=== PATIENT | female | born 1995 | race Hispanic/Latino ===

== ENCOUNTER 2024-06-15 16:40 | Emergency (ER) | payer BC, MEDICAID ==
[~2024-06-15] VITALS: Ht 165.1 cm; Wt 81.2 kg
--- NOTE | 2024-06-15 17:02 | ERN ---
ED Note History of Present Illness Stated Complaint: VAGINAL RASH Chief Complaint: Skin Rash/Abscess Time Seen by MD: 16:45 Dictation: PATIENT IS HERE WITH COMPLAINTS OF ONE WEEK'S WORTH OF VAGINAL DISCHARGE UNCLEAR OF THE COLOR, ITCHING AND SOME BUMPS AROUND HER LABIA AND VAGINA. SHE DENIES ANY FEVER CHILLS NAUSEA VOMITING OR DYSURIA DOES STATE THAT SHE HAS A HISTORY OF SEXUALLY TRANSMITTED DISEASE FROM THE SAME [facility] SHE IS DATING NOW, HE GAVE ME SYPHILIS LAST YEAR AND I HAD TO GET A SHOT TO TAKE CARE OF IT. SHE SAID I JUST GOT OUT OF PENITENTIARY FEW DAYS AGO AND I WAS IN PENITENTIARY FOR FOUR MONTHS. STATES LAST SEXUAL CONTACT WAS SEVERAL MONTHS AGO PRIOR TO PENITENTIARY Allergies: Coded Allergies: No Known Allergies (Unverified Allergy, Unknown, 06/15/24) Home Meds Active Scripts Fluconazole (Diflucan) 200 Mg Tablet, 1 TAB PO DAILY for 1 Day, #1 TAB 0 Refills ONE TABLET P.O. X1 DOSE Prov:ABAD WAGGONER BRAILLE TRANSCRIBER 06/15/24 Past Medical History Past Medical History: No Pertinent History Surgical History: None PSYCH History: no pertinent psych hx History: Not Applicable LMP: May 12, 2024 RN Note Reviewed/Agreed w/PFSH: Yes Review of System Dictation CONSTITUTIONAL: NEGATIVE EXCEPT FOR HPI HEAD/FACE: NEGATIVE EXCEPT FOR HPI EENT: NEGATIVE EXCEPT FOR HPI RESPIRATORY: NEGATIVE EXCEPT FOR HPI GASTROINTESTINAL/ABDOMINAL: NEGATIVE EXCEPT FOR HPI GENITOURINARY: NEGATIVE EXCEPT FOR HPI MUSCULOSKELETAL: NEGATIVE EXCEPT FOR HPI INTEGUMENTARY: NEGATIVE EXCEPT FOR HPI NEUROLOGICAL/PSYCH: NEGATIVE EXCEPT FOR HPI HEMATOLOGIC/LYMPHATIC: NEGATIVE EXCEPT FOR HPI ALL SYSTEMS NEGATIVE, EXCEPT NOTED ABOVE. 13 POINT REVIEW OF SYSTEMS ASSESSED AND ALL NEGATIVE EXCEPT FOR ABOVE. Initial Vital Sign VS Vital Signs Date Time Temp Pulse Resp B/P (MAP) Pulse Ox O2 Delivery O2 Flow Rate FiO2 06/15/24 16:41 99.0 79 16 136/83 100 Room Air 0 06/15/24 18:03 21 Physical Exam Dictation VITAL SIGNS REVIEWED MARY METCALF IN ROOM WITH THE EXAM GENERAL APPEARANCE: ALERT, ORIENTED X 3, NO ACUTE DISTRESS, WELL DEVELOPED, NOURISHED. HEAD AND FACE: NON-TRAUMATIC. EYES: PERRL, PINK CONJUNCTIVAS, EYELID NO TRAUMA, ANTERIOR CHAMBER WITH ARCUS SENILIS. EARS: PINNAS INTACT AND NO SIGNS OF TRAUMA OR ERYTHEMA EAR CANALS CLEAR AND NO DISCHARGE TM NO ERYTHEMA NOSE: NO DISCHARGE, NO BLEEDING. OROPHARYNX: MOUTH NORMAL, TONGUE PINK, PHARYNX CLEAR,NO ERYTHEMA, TONSILS NO EXUDATES, NO ABSCESSES NOTED, MUCOUS MEMBRANE MOIST NECK: SUPPLE, NON-TENDER, NO THYROMEGALY, NO MASSES, NO JVD, NO BRUITS BREAST:DEFERRED CHEST:NO TENDERNESS, NO CREPITUS, NO PARADOXICAL MOVEMENT, NO RETRACTIONS LUNGS:CLEAR, WELL-VENTILATED, SYMMETRIC, NO RALES, NO WHEEZING, NO RHONCHI, NO STRIDOR, GOOD BREATH SOUNDS BILATERALLY HEART: REGULAR RATE, REGULAR RHYTHM, NO MURMUR, NO GALLOPS VASCULAR: NO PERIPHERAL EDEMA, ABDOMEN: SOFT, POSITIVE BOWEL SOUNDS, NONDISTENDED, NO GUARDING, NONTENDER, NO REBOUND, NO MASSES NO HEPATOMEGALY, NO SPLENOMEGALY, NO FONG'S SIGN, NO HERNIAS. RECTAL: DEFERRED GENITAL: MULTIPLE FOLLICULAR BAR BE SECONDARY TO SHAVING. NO SPECULUM EXAM PERFORMED. WHITE CHEESY DISCHARGE NOTED NEUROLOGICAL: NORMAL SPEECH, MOTOR FUNCTION INTACT, SENSORY FUNCTION INTACT MUSCULOSKELETAL: NECK NONTENDER, FULL RANGE OF MOTION, BACK NONTENDER, FULL RANGE OF MOTION, EXTREMITIES: NONTENDER, FULL RANGE OF MOTION SKIN: COLOR PINK, DRY, NO TURGOR, NO RASH, NO LACERATIONS, NO ABRASIONS, NO CONTUSIONS. LYMPHATIC: DEFERRED Results (Laboratory/Radiology) Laboratory/Radiology Laboratory Tests Test 06/15/24 16:55 Urine Color LIGHT-YELLOW (YELLOW) Urine Appearance CLEAR (CLEAR) Urine pH 7.5 (5.0-8.0) Urine Specific [place] 1.016 (1.001-1.031) Urine Protein NEGATIVE mg/dL (NEGATIVE) Urine Glucose (UA) NEGATIVE mg/dL (NEGATIVE) Urine Ketones NEGATIVE mg/dL (NEGATIVE) Urine Occult Blood NEGATIVE (NEGATIVE) Urine Nitrate NEGATIVE (NEGATIVE) Urine Bilirubin NEGATIVE mg/dL (NEGATIVE) Urine Urobilinogen 0.2 mg/dL (0.2-1.0) Urine Leukocyte Esterase NEGATIVE Brenna/uL Urine RBC None /HPF (0-1) Urine WBC 0-1 /HPF (0-1) Urine Squamous Epithelial Cells RARE /HPF (0-2) Urine Bacteria None /HPF (None Seen) Urine HCG, Qualitative NEGATIVE (NEGATIVE) Labs Reviewed?: Yes ED Course ED Course Orders Procedure Category Date Status Time Urinalysis Profile LAB 06/15/24 Complete 16:58 ,Urine Test LAB 06/15/24 Complete 16:58 Chlamydia & Gc Pcr [place] 06/15/24 In Process 16:58 Vital Signs Date Time Temp Pulse Resp B/P (MAP) Pulse Ox O2 Delivery O2 Flow Rate FiO2 06/15/24 18:03 99.0 78 16 131/76 100 Room Air* 0 21 06/15/24 16:41 99.0 79 16 136/83 100 Room Air 0 1755 URINE NEGATIVE, GC AND CHLAMYDIA NOT RETURNED. AGAIN, PATIENT STATES SHE HAS HAD NO SEX IN MORE THAN POOR AND A HALF TO FIVE MONTHS. NO PELVIC PAIN DISCHARGE HOME WITH DIFLUCAN AND TOLD TO SEE YOUR PRIMARY CARE DOCTOR Medical Decision Making MDM MEDICAL DISCHARGE MAKING BASED ON URINALYSIS, HCG, GC CHLAMYDIA AND PHYSICAL EXAM. NO TREATMENT REQUIRED FOR SHAVING CASSANDRA DAY PATIENT WILL BE TREATED FOR VAGINAL CANDIDIASIS PULLED TO SEE YOUR PRIMARY CARE DOCTOR NEXT WEEK DX & DISP Disposition: Discharge Departure Impression: Primary Impression: Vaginal candidiasis Condition: Stable Scripts Fluconazole (Diflucan) 200 Mg Tablet 1 TAB PO DAILY for 1 Day, #1 TAB 0 Refills ONE TABLET P.O. X1 DOSE Prov: ABAD WAGGONER BRAILLE TRANSCRIBER 06/15/24 Additional Instructions: FOLLOW-UP WITH PRIMARY CARE PROVIDER IN 1 TO 2 DAYS. TAKE MEDICATIONS DIRECTED HERE IN THE EMERGENCY ROOM. OKAY TO CONTINUE HOME MEDICATIONS UNLESS OTHERWISE DISCUSSED DURING YOUR VISIT IN THE EMERGENCY ROOM TODAY. RETURN TO YOUR NEAREST EMERGENCY ROOM IF SYMPTOMS WORSEN OR IF THERE IS NO IMPROVEMENT. CALL 911 IF YOU NEED IMMEDIATE ASSISTANCE. TAKE TYLENOL OR MOTRIN [id number] NEEDED AND IF NO CONTRAINDICATIONS ARE PRESENT. INCREASE ORAL HYDRATION. A WOUND CULTURE OR URINE CULTURE WAS ORDERED HERE IN THE EMERGENCY ROOM DEPARTMENT PLEASE FOLLOW-UP WITH PRIMARY CARE PROVIDER AND ADVISE THEM TO GET REPEAT PORTS FROM OUR FACILITY. IF YOU HAD ANY LEE ANN WRAP/SPLINTS THAT WERE APPLIED HERE, PLEASE DO NOT REMOVE THEM UNTIL YOU SEE YOUR PRIMARY CARE OR SPECIALTY. TAKE DIFLUCAN DIRECTED. NO SEX UNTIL CLEARED BY YOUR PRIMARY CARE DOCTOR NEXT WEEK. Referrals: SELF,REFERRAL (PCP) Time of Disposition: 17:58 I have reviewed the case, and I agree with, Diagnosis and Plan ATTESTATION BY PHYSICIAN I PERFORMED THE SUBSTANTIVE PORTION OF THE VISIT. I HAVE REVIEWED AND PERSONALLY MADE AND APPROVED THE MANAGEMENT PLAN THAT IS DOCUMENTED IN THE NOTE BY MYSELF FOR THE A PP. I ACKNOWLEDGED FOR RESPONSIBILITY FOR THE PATIENT'S MANAGEMENT PLAN. ABAD WAGGONER NP Jun 15, 2024 17:02 LEWIS MOORE MD Jun 15, 2024 18:56
[2024-06-15 17:11] LABS: APPEARANCE,URINE CLEAR (CLEAR); BILIRUBIN,URINE NEGATIVE (NEGATIVE); COLOR,URINE LIGHT-YELLOW (YELLOW); GLUCOSE, URINE (UA) NEGATIVE (NEGATIVE); KETONES,URINE NEGATIVE (NEGATIVE); LEUKOCYTE ESTERASE ,URINE NEGATIVE Leu/uL (NEGATIVE); NITRATE,URINE NEGATIVE (NEGATIVE); OCCULT BLOOD,URINE NEGATIVE (NEGATIVE); PH,URINE 7.5 (5.0-8.0); PROTEIN,URINE NEGATIVE (NEGATIVE); UROBILINOGEN,URINE 0.2 mg/dL (0.2-1.0)
[2024-06-15 17:13] LABS: ADD UA MICROSCOPIC YES
[2024-06-15 17:17] LABS: SQUAMOUS EPITHELIAL CELL,UR RARE /HPF (0-2); WBC,URINE 0-1 /HPF (0-1)
[2024-06-15 17:27] LABS: HCG,QUALITATIVE URINE NEGATIVE (NEGATIVE)
[2024-06-15] MEDS ORDERED: FLUC200T PO (17:59)
[2024-06-15 18:03] VITALS: BP 131/76; PULSE 78; RESP 16; TEMP 98.9; O2SAT 100
== END 2024-06-15 18:07 | disposition home or self-care (01) ==
LOC: EDH 16:40
DX: B37.31 Acute candidiasis of vulva and vagina (principal)
CPT/HCPCS: 81001; 81025; 87491; 87591; 99283